=== PATIENT | female | born 1990 | race American Indian/Alaskan Native ===

== ENCOUNTER 2020-08-30 11:53 | Emergency (ER) | payer SELFPAY ==
[2020-08-30 12:32] LABS: Basophils % (Auto) 0.1 % (0.0-1.8); Eosinophils % (Auto) 0.3 % (0.0-4.3); Hemoglobin 12.5 gm/dl (10.1-14.3); Lymphocytes # (Auto) 0.8 K/mm3 (1.2-5.4); Lymphocytes % (Auto) 8.2 % (13.4-35.0); Mean Corpuscular HGB Conc 33 % (30-34); Mean Corpuscular Volume 92 fl (79-97); Monocytes # (Auto) 0.5 K/mm3 (0.0-0.8); Monocytes % (Auto) 5.4 % (0.0-7.3); Platelet Count 235 K/mm3 (140-440); Red Blood Count 4.15 M/mm3 (3.65-5.03)
--- NOTE | 2020-08-30 13:03 | Emergency Department Report ---
ED Psych HPI - General Chief Complaint: Psych Stated Complaint: EVALUATION Time Seen by Provider: 08/30/20 12:02 Source: patient, EMS Mode of arrival: Ambulatory - History of Present Illness Initial Comments: CC: "I'm suicidal. I keep having dreams." HPI: This is a 29-year-old female with history of bipolar disorder who presents with suicidal ideation. Patient states that she has dreams of dying in a car. She has a lot of social stressors. She has been away from her children who reside in [place] for several months. Her boyfriend also has a mental health disorder. She has had previous suicide attempt. She does not take any medication at this time. She does not have access to psychiatric care. She moved from [place] in December to have a new beginning in life. She needed a change in order to improve her quality of life. MD Complaint: suicidal ideation, feels depressed -: week(s) (3 weeks) Associated Psychiatric Symptoms: depression, suicidal ideation History of same: Yes Quality: constant Improves With: none Worsens With: none Context: not taking psychiatric, significant life stressor Associated Symptoms: denies other symptoms Treatments Prior to Arrival: none If Self Harm: admits thoughts of - Related Data Allergies Allergy/AdvReac Type Severity Reaction Status Date / Time No Known Allergies Allergy Unverified 08/30/20 12:06 ED Review of Systems ROS: Stated complaint: EVALUATION Other details as noted in HPI Comment: All other systems reviewed and negative Constitutional: denies: fever, malaise Respiratory: denies: cough, shortness of breath Gastrointestinal: denies: abdominal pain, nausea, vomiting Psychiatric: depression, suicidal thoughts. denies: auditory hallucinations, visual hallucinations ED Past Medical Hx - Past Medical History Previous Medical History?: Yes Hx Psychiatric Treatment: Yes (PTSD, depression, bipolar) - Surgical History Past Surgical History?: Yes Additional Surgical History: benign breast tumor removal ED Physical Exam - General Limitations: No Limitations General appearance: alert, in no apparent distress - Head Head exam: Present: atraumatic, normocephalic - Eye Eye exam: Present: normal appearance - ENT ENT exam: Present: mucous membranes moist - Neck Neck exam: Present: normal inspection, full ROM - Respiratory Respiratory exam: Present: normal lung sounds bilaterally. Absent: respiratory distress, wheezes, rales, rhonchi - Cardiovascular Cardiovascular Exam: Present: regular rate, normal rhythm, normal heart sounds. Absent: systolic murmur, diastolic murmur, rubs, gallop - GI/Abdominal GI/Abdominal exam: Present: soft, normal bowel sounds. Absent: distended, tenderness, guarding, rebound - Extremities Exam Extremities exam: Present: normal inspection - Neurological Exam Neurological exam: Present: alert, oriented X3 - Psychiatric Psychiatric exam: Present: depressed - Skin Skin exam: Present: warm, dry, intact, normal color. Absent: rash ED Course Vital Signs 08/30/20 08/30/20 12:17 12:55 Temperature 98.6 F 98.8 F Pulse Rate 81 91 H Respiratory 16 20 Rate Blood Pressure 144/75 149/80 [Right] O2 Sat by Pulse 99 100 Oximetry ED Medical Decision Making - Lab Data Result diagrams: 08/30/20 12:13 08/30/20 12:13 - Medical Decision Making This is an 29-year-old female with history of bipolar disorder who presents with suicidal ideation. She has multiple social stressors including separation from her children. She currently does not have access to psychiatric care. I have reviewed labs obtained CBC chemistry serum toxicology. All within normal limits. Serum test negative. Patient is medically clear for psychiatric care. She currently does not have a plan to harm herself. Awaiting treatment recommendations from mental health team. 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 Family members concerned that patient's behavior has escalated over the last several weeks. According to mental health assessment, she is at risk for self- harm. Considering patient's personal safety is at risk, 1013 form completed in order to expedite transfer to inpatient psychiatric facility. Critical care attestation.: If time is entered above; I have spent that time in minutes in the direct care of this critically ill patient, excluding procedure time. ED Disposition Clinical Impression: Suicidal ideation, Bipolar disorder Disposition: [id number] PSY HOSP/PSY UNIT Is pt being admited?: No Does the pt Need Aspirin: No Condition: Stable Referrals: PRIMARY CARE, [Primary Care Provider] - 3-5 Days
[2020-08-30 13:06] LABS: Blood Urea Nitrogen 10 mg/dL (7-17); Calcium 9.2 mg/dL (8.4-10.2); Hemolysis Index 5
[2020-08-30 13:31] LABS: BUN/Creatinine Ratio 17
[2020-08-30 15:45] LABS: Bilirubin,Urine NEG (Negative); Blood,Urine LG (Negative); Color,Urine Yellow (Yellow); Urobilinogen,Urine < 2.0 mg/dL (<2.0)
[2020-08-30 15:49] LABS: Amphetamine Screen,Urine PRESUMPTIVE POSITIVE; Benzodiazepines Screen,Urine PRESUMPTIVE NEGATIVE; Cannabinoid Screen,Urine PRESUMPTIVE POSITIVE; Cocaine Screen,Urine PRESUMPTIVE NEGATIVE; Methadone Screen,Urine PRESUMPTIVE NEGATIVE; Opiate Screen,Urine PRESUMPTIVE NEGATIVE
[2020-08-30 15:54] LABS: RBC,Urine > 182.0 /HPF (0.0-6.0)
[2020-08-30] MEDS ORDERED: ACETAMINOPHEN 325 MG TAB PO PRN (16:16)
[2020-08-30] MEDS ORDERED: ALUM-MAG HYDROXIDE-SIMETHICONE 200-200-20MG/5ML ORAL LIQD 30 ML PO PRN (16:16)
[2020-08-30] MEDS ORDERED: MAGNESIUM HYDROXIDE (MOM) ORAL LIQD UDC PO PRN (16:16)
[2020-08-30] MEDS ORDERED: ACETAMINOPHEN 325 MG TAB PO ONE (21:40)
[2020-08-31 09:46] VITALS: BP 149/90
--- NOTE | 2020-08-31 10:43 | Event Note ---
S: "I feel okay. Am I going to go home." O: calm, cooperative, insightful, NAD, denies SI/HI/hallucinations stable vital signs A: SI, hx of bipolar disorder, anemia P: awaiting MH team treatment recommendations
--- NOTE | 2020-08-31 12:08 | Consultation ---
History of Present Illness - Reason for Consult Consult date: 08/31/20 Reason for consult: MHE Requesting physician: LIZBETH SALOMON - History of Present Psychiatric Illness Per ED Provider: This is a 29-year-old female with history of bipolar disorder who presents with suicidal ideation. Patient states that she has dreams of dying in a car. She has a lot of social stressors. She has been away from her children who reside in [place] for several months. Her boyfriend also has a mental health disorder. She has had previous suicide attempt. She does not take any medication at this time. She does not have access to psychiatric care. She moved from [place] in December to have a new beginning in life. She needed a change in order to improve her quality of life. PSYCH HPI Patient says that he-year-old single, currently unemployed -[place] female who resides with her boyfriend after moving from [facility] with past psychiatric history of bipolar, depression, PTSD and no significant past medical history who presented to the ED for chief complaint of having suicidal ideations. Patient reports yesterday she woke up on the wrong side of the bed, was having a very bad day and she decided to take it out on herself and also on boyfriend. Patient reports she is very sad about not having her kids here from [place] with her, she reported she has a joint custody with mariela manuel who currently has custody of the kids in [place] because the kids were not able to get school placement here in [place] so she had to leave them behind. Patient endorses that she is to see a psychiatrist, but not anymore and that is been over a year since she last took her medications. He endorses cutting herself in the neck and also her arm. PAST PSYCHIATRIC HISTORY Diagnoses: bipolar, depression, PTSD Suicide attempts or Self-harm behavior: yes Prior psychiatric hospitalizations: yes Substance Abuse history: none reported Previous psychiatric medications tried: yes Outpatient treatment: none reported PAST MEDICAL HISTORY: none reported Family Psychiatric History: None reported or documented SOCIAL HISTORY Marital Status: single Living Arrangements: with BF Employment Status: unemployed Access to guns/weapons: none reported Education:[employer] [facility] [employer] History of Abuse: none reported Legal History: none reported REVIEW OF SYSTEMS Constitutional: Negative for weight loss ENT: Negative for stridor Respiratory: Negative for cough or hemoptysis All other systems reviewed and are negative MENTAL STATUS EXAMINATION General Appearance and Behavior: Age appropriate, good hygiene, wearing appropriate clothes,, good eye contact Cooperation: Participating/engaged, but Guarded Psychomotor Behavior: Psychomotor normal Mood: depressed Affect and affective range: irritable, labile Thought Process: illogical Thought Content: hopelessness, helplessness Speech: Normal rate, volume and rythm Intellectual Functioning: Average Suicidal Ideation: denies SI Homicidal Ideation: Denies HI Impulse Control: Impaired Insight and Judgment: Limited insight and judgment Memory: Normal Attention: Normal Orientation: Alert, oriented Assessment and Plan - Psychiatric problem (1) Bipolar disorder, current episode depressed, moderate Current Visit: Yes Status: Acute f31.32 Treatment Plan Spoke, reports she has outpt appt set up and will be responsible for patients follow and welfare. Pt can be discharged, has appt tomorrow. MEDICATIONS: Risks, benefits and alternatives of medications discussed with the patient, questions answered and consent obtained from patient. PSYCHOTHERAPY: Supportive psychotherapy provided MEDICAL: Per primary team DELIRIUM PRECAUTIONS: Please re-orient patient frequently, keep lights on during the day, and minimize benzodiazepines and opiates as these medications could worsen patient's confusion. QUARTER FOLDER: DISPOSITION: Do not Recommend acute inpatient psychiatric hospitalization at this time. Case discussed with Dr. Islas who agrees with current disposition LEGAL STATUS: 1013 rescinded FOLLOW-UP: Will sign off Thank you for the consult. Please contact with any questions and/or concerns. Medications and Allergies Allergies Allergy/AdvReac Type Severity Reaction Status Date / Time No Known Allergies Allergy Unverified 08/30/20 12:06 Active Meds: Active Medications Acetaminophen (Acetaminophen 325 Mg Tab) 650 mg PO Q4HR PRN PRN Reason: Pain MILD(1-3)/Fever >100.5/CAR Last Admin: 08/30/20 21:55 Dose: 650 mg Documented by: Al Hydrox/Mg Hydrox/Simethicone (Alum-Mag Hydroxide-Simethicone [phone]/5ml Oral Liqd 30 Ml) 30 ml PO Q4HR PRN PRN Reason: Indigestion Magnesium Hydroxide (Magnesium Hydroxide (Mom) Oral Liqd Udc) 30 ml PO Q12HR PRN PRN Reason: Constipation Mental Status Exam - Vital signs Last Vital Signs Temp 97.8 F 08/31/20 09:43 Pulse 72 08/31/20 09:43 Resp 18 04/21/21 09:43 BP 149/90 08/31/20 09:43 Pulse Ox 99 08/31/20 09:43 Results Result Diagrams: 08/30/20 12:13 08/30/20 12:13 Abnormal lab results 08/30/20 08/30/20 08/30/20 Range/Units 12:13 12:13 12:13 RDW 13.0 L (13.2-15.2) % Lymph % (Auto) 8.2 L (13.4-35.0) % Lymph # (Auto) 0.8 L (1.2-5.4) K/mm3 Seg Neutrophils % 86.0 H (40.0-70.0) % Seg Neutrophils # 8.0 H (1.8-7.7) K/mm3 Glucose 120 H (65-100) mg/dL Urine WBC (Auto) (0.0-6.0) /HPF Salicylates < 0.3 L (2.8-20.0) mg/dL Acetaminophen (10.0-30.0) ug/mL 08/30/20 08/30/20 Range/Units 12:13 Unknown RDW (13.2-15.2) % Lymph % (Auto) (13.4-35.0) % Lymph # (Auto) (1.2-5.4) K/mm3 Seg Neutrophils % (40.0-70.0) % Seg Neutrophils # (1.8-7.7) K/mm3 Glucose (65-100) mg/dL Urine WBC (Auto) 45.0 H (0.0-6.0) /HPF Salicylates (2.8-20.0) mg/dL Acetaminophen 5.0 L (10.0-30.0) ug/mL All other labs normal. Assessment and Plan - Psychiatric problem (1) Bipolar disorder, current episode depressed, moderate Current Visit: Yes Status: Acute
[2020-08-31] MEDS ORDERED: VALPROIC ACID 250 MG CAP PO SCH (13:00)
== END 2020-08-31 16:45 | disposition home or self-care (01) ==
LOC: ED 11:53
DX: F31.9 Bipolar disorder, unspecified (principal); F43.10 Post-traumatic stress disorder, unspecified; Z20.822 Contact with and (suspected) exposure to COVID-19
CPT/HCPCS: 36415; 80048; 80307; 81001; 84703; 85025; 87086; 99284; U0003; 80320; G0480